=== PATIENT | female | born 1945 | race Caucasian/White ===

== ENCOUNTER 2016-12-20 08:53 | Emergency (ER) | payer MEDICARE, OTHER ==
[~2016-12-20] VITALS: Ht 172.7 cm; Wt 70.3 kg
[~2016-12-20 08:53] MED LIST: ACET325T53 PO; ASPI81TA2 PO; CALC-619 PO; DASA70TA PO; DILT240C94 PO; DOCU250C71 PO; FURO-149 PO; GABA600T PO; HYDR-1189 PO; HYDR-4039 PO; IMAT100T2 PO; INSNPH7030 SQ; INSU100V SQ; LOSA100T11 PO; PRAV20TA59 PO; RANI150T8 PO; TRAM50TA2 PO; TRAZ-123 PO; metropolol PO
--- NOTE | 2016-12-20 08:55 | NUR ---
Arrived via S ambulance S/P fall last night. Patient remains on EMS gurney. No beds available.
[2016-12-20 08:56] VITALS: BP 156/101; PULSE 94; RESP 16; TEMP 97.4; O2SAT 98
--- NOTE | 2016-12-20 09:25 | NUR ---
Off unit for rad.
[2016-12-20] MEDS ORDERED: MENT113G4 TP (09:35)
[2016-12-20] MEDS ORDERED: ONDA4TAB22 PO (09:35)
[2016-12-20] MEDS ORDERED: VITA1TAB25 PO (09:35)
[2016-12-20] MEDS ORDERED: LIP80 PO (09:35)
[2016-12-20] MEDS ORDERED: ISO10 PO (09:35)
[2016-12-20] MEDS ORDERED: CHOL500037 PO (09:35)
[2016-12-20] MEDS ORDERED: SEN30 PO (09:35)
[2016-12-20] MEDS ORDERED: CLOP75TA2 PO (09:35)
--- NOTE | 2016-12-20 09:43 | NUR ---
Patient returned from Rad. Patient to ER bed 7 to gown for evaluation. Side rails up. Report given to Vilma CLEMENS.
[2016-12-20 10:03] LABS: BASOPHILS % (AUTO) 0.2 % (0.0-2.0); EOSINOPHILS % (AUTO) 0.4 % (0.0-4.0); HEMATOCRIT 32.4 % (36-48); HEMOGLOBIN 11.1 g/dL (12.0-16.0); LYMPHOCYTES # (AUTO) 1.2 K/uL (1.0-5.5); LYMPHOCYTES % (AUTO) 17.9 % (20.5-51.5); MEAN CORPUSCULAR HEMOGLOBIN 35 pg (27-31); MEAN CORPUSCULAR HGB CONC 34 % (32-36); MEAN CORPUSCULAR VOLUME 100 fL (79.0-98.0); MONOCYTES # (AUTO) 0.6 K/uL (0.0-1.0); MONOCYTES % (AUTO) 8.3 % (1.7-9.3); NEUTROPHILS % (AUTO) 73.2 % (40.0-70.0); PLATELET COUNT (AUTO) 116 K/uL (130-430); RED BLOOD CELL COUNT(AUTO) 3.23 MIL/uL (4.2-6.2); RED CELL DISTRIBUTION WIDTH 12.9 % (9.0-15.0); WHITE BLOOD COUNT (AUTO) 6.8 K/uL (4.8-10.8)
--- NOTE | 2016-12-20 10:03 | NUR ---
Patient in stable condition, no distress noted.
[2016-12-20 10:10] LABS: ALBUMIN 3.9 g/dL (3.4-4.8); CREATININE 3.23 mg/dL (0.55-1.30); POTASSIUM 3.8 mmol/L (3.5-5.1); TOTAL BILIRUBIN 1.4 mg/dL (0.0-1.0)
[2016-12-20 10:15] LABS: CALCIUM 8.9 mg/dL (8.4-11.0)
[2016-12-20 10:33] LABS: BILIRUBIN,URINE NEGATIVE (NEGATIVE); BLOOD, URINE 2+ (NEGATIVE); CLARITY/URINE CLEAR (CLEAR); COLOR,URINE YELLOW (YELLOW); GLUCOSE,URINE NEGATIVE (NEGATIVE); KETONES,URINE NEGATIVE (NEGATIVE); LEUKOCYTE ESTERASE ,URINE TRACE (NEGATIVE); NITRITE, URINE NEGATIVE (NEGATIVE); PROTEIN URINE 3+ (NEGATIVE); UROBILINOGEN,URINE 0.2 (0.2-1.0)
[2016-12-20 10:35] LABS: CKMB RELATIVE INDEX 0.2 (0.0-2.9); CREATINE KINASE MB 0.4 ng/mL (0-3.6)
[2016-12-20 10:39] LABS: BACTERIA,URINE MANY /HPF (None Seen); MUCUS,URINE None Seen /LPF (None Seen)
--- NOTE | 2016-12-20 11:27 | NUR ---
Patient in stable condition, resting quietly in bed, no distress noted.
[2016-12-20] MEDS ORDERED: ACETAMINOPHEN 500 MG TABLET PO ONE (11:45)
--- NOTE | 2016-12-20 12:00 | NUR ---
PT. READY TO BE DISCHARGED, [facility] WAS CALLED TO GIVE REPORT AND ARRANGE TRANSPORTATION, TRANSPORTATION NOT AVAILABLE DURING WEEKENDS AT [facility], PT. IN BED WAITING TO BE TRANSPORTED BACK TO [facility]
--- NOTE | 2016-12-20 12:15 | NUR ---
PT. FAMILY APPROACHED, UNABLE TO BRAID MAKER THE PT. AT THIS TIME
[2016-12-20 13:30] VITALS: BP 141/89; PULSE 72; RESP 18; TEMP 98.1; O2SAT 98
--- NOTE | 2016-12-20 13:30 | NUR ---
Patient given written and verbal discharge instructions and verbalizes understanding. ER MD DR. SANTOS discussed with patient the results and treatment provided. Patient in stable condition. ID arm band removed. IV catheter removed intact and dressing applied, no active bleeding. NO Rx given. Patient educated on pain management and to follow up with PMD. Pain Scale 0/10 Opportunity for questions provided and answered.
--- NOTE | 2016-12-23 07:44 | NUR ---
Final culture reviewed with Dr. Will. New Rx for Macrobid 50mg PO Bid faxed to [facility] will ensure that Rx is filled and patient is able to take it.
== END 2016-12-20 13:30 | disposition home or self-care (01) ==
LOC: SED 08:53
DX: S63.501A Unspecified sprain of right wrist, initial encounter (principal); S83.91XA Sprain of unspecified site of right knee, initial encounter; S70.01XA Contusion of right hip, initial encounter; S16.1XXA Strain of muscle, fascia and tendon at neck level, initial encounter; N39.0 Urinary tract infection, site not specified; N28.9 Disorder of kidney and ureter, unspecified; I12.0 Hypertensive chronic kidney disease with stage 5 chronic kidney disease or end stage renal disease; R51 Headache; C95.90 Leukemia, unspecified not having achieved remission; E11.9 Type 2 diabetes mellitus without complications; E78.00 Pure hypercholesterolemia, unspecified; N18.6 End stage renal disease; Z99.2 Dependence on renal dialysis; Z88.1 Allergy status to other antibiotic agents; Z86.73 Personal history of transient ischemic attack (TIA), and cerebral infarction without residual deficits; Z90.49 Acquired absence of other specified parts of digestive tract; Z90.710 Acquired absence of both cervix and uterus; W01.0XXA Fall on same level from slipping, tripping and stumbling without subsequent striking against object, initial encounter; Y99.8 Other external cause status; Y93.01 Activity, walking, marching and hiking; Y92.89 Other specified places as the place of occurrence of the external cause
CPT/HCPCS: 36415; 70450-TC; 72125-TC; 72170-TC; 73560-TC; 80053; 81000-TC; 82550-TC; 82553-TC; 85025; 85610-TC; 85730-TC; 87086; 87186-TC; 99285

== ENCOUNTER 2017-04-20 13:29 | Emergency (ER) | payer MEDICARE, OTHER ==
[~2017-04-20] VITALS: Ht 170.2 cm; Wt 74.8 kg
[~2017-04-20 13:29] MED LIST changes: -ACET325T53 PO; -ASPI81TA2 PO; -CALC-619 PO; +CHOL500037 PO; +CLOP75TA2 PO; -DILT240C94 PO; -DOCU250C71 PO; -FURO-149 PO; -GABA600T PO; -HYDR-1189 PO; -HYDR-4039 PO; -IMAT100T2 PO; -INSNPH7030 SQ; -INSU100V SQ; +ISO10 PO; +LIP80 PO; -LOSA100T11 PO; +MENT113G4 TP; +ONDA4TAB22 PO; -PRAV20TA59 PO; -RANI150T8 PO; +SEN30 PO; +VITA1TAB25 PO
[2017-04-20 13:31] VITALS: BP_SYST 118
[2017-04-20] MEDS ORDERED: ACETAMINOPHEN 325 MG TABLET PO ONE (13:45)
[2017-04-20] MEDS ORDERED: ONDANSETRON 4 MG ODT TAB PO ONE (13:45)
[2017-04-20 16:53] VITALS: BP_SYST 120
== END 2017-04-20 16:53 | disposition home or self-care (01) ==
LOC: SED 13:29
DX: S13.4XXA Sprain of ligaments of cervical spine, initial encounter (principal); M25.512 Pain in left shoulder; M25.522 Pain in left elbow; R51 Headache; I12.9 Hypertensive chronic kidney disease with stage 1 through stage 4 chronic kidney disease, or unspecified chronic kidney disease; E11.22 Type 2 diabetes mellitus with diabetic chronic kidney disease; N18.9 Chronic kidney disease, unspecified; E78.00 Pure hypercholesterolemia, unspecified; Z99.2 Dependence on renal dialysis; Z86.73 Personal history of transient ischemic attack (TIA), and cerebral infarction without residual deficits; Z88.1 Allergy status to other antibiotic agents; Z79.899 Other long term (current) drug therapy; V59.60XA Unspecified occupant of pick-up truck or van injured in collision with unspecified motor vehicles in traffic accident, initial encounter; Y93.89 Activity, other specified; Y92.89 Other specified places as the place of occurrence of the external cause; Y99.8 Other external cause status
CPT/HCPCS: 29105; 70450; 72125; 72128; 73030; 73080; 99284; Q0162

== ENCOUNTER 2018-06-01 19:40 | Emergency (ER) | payer MEDICARE, OTHER ==
[~2018-06-01] VITALS: Ht 162.6 cm; Wt 61.2 kg
[2018-06-01 19:40] VITALS: BP_SYST 129
[~2018-06-01 19:40] MED LIST changes: -MENT113G4 TP; +METO25TA6 PO; -metropolol PO
[2018-06-01] MEDS ORDERED: NACL 0.9% 1,000 ML IV ONE (19:50)
[2018-06-01] MEDS ORDERED: ASPIRIN 81 MG TAB.CHEW PO ONE (20:15)
[2018-06-01] MEDS ORDERED: NITROGLYCERIN 0.4 MG TAB.SUBL SL ONE (20:15)
[2018-06-01 20:38] LABS: EOSINOPHILS # (AUTO) 0.1 K/uL (0.0-0.4); EOSINOPHILS % (AUTO) 1.9 % (0.0-4.0); HEMATOCRIT 30.8 % (36-48); HEMOGLOBIN 10.3 g/dL (12.0-16.0); LYMPHOCYTES # (AUTO) 1.5 K/uL (1.0-5.5); LYMPHOCYTES % (AUTO) 49.6 % (20.5-51.5); MEAN CORPUSCULAR HEMOGLOBIN 36 pg (27-31); MEAN CORPUSCULAR HGB CONC 34 % (32-36); MEAN CORPUSCULAR VOLUME 106 fL (79.0-98.0); MONOCYTES # (AUTO) 0.2 K/uL (0.0-1.0); MONOCYTES % (AUTO) 7.2 % (1.7-9.3); NEUTROPHILS # (AUTO) 1.2 K/uL (1.8-7.7); NEUTROPHILS % (AUTO) 40.3 % (40.0-70.0); PLATELET COUNT (AUTO) 139 K/uL (130-430)
[2018-06-01 20:47] LABS: ANION GAP 9 (5-15); CALCIUM 7.3 mg/dL (8.4-11.0); CHLORIDE 96 mmol/L (98-107); CREATININE 3.73 mg/dL (0.55-1.30); GLUCOSE 141 mg/dL (70-99); POTASSIUM 3.3 mmol/L (3.5-5.1); SODIUM SERUM 133 mmol/L (136-145); UREA NITROGEN, BLOOD 42 mg/dL (8-21)
[2018-06-01 20:51] LABS: ALANINE AMINOTRANSFERASE 35 U/L (12-78); ALBUMIN 3.1 g/dL (3.4-4.8); AMYLASE 107 U/L (0-100); ASPARTATE AMINOTRANSFERASE 37 U/L (10-37); LIPASE 399 U/L (73-393); TOTAL BILIRUBIN 0.8 mg/dL (0.0-1.0)
[2018-06-01 20:54] LABS: INR 1.1 (0.8-1.2)
[2018-06-01] MEDS ORDERED: ACETAMINOPHEN 650 MG/20.3 ML UDC PO ONE (22:00)
[2018-06-01 22:51] LABS: BILIRUBIN,URINE NEGATIVE (NEGATIVE); BLOOD, URINE 1+ (NEGATIVE); CLARITY/URINE HAZY (CLEAR); COLOR,URINE YELLOW (YELLOW); GLUCOSE,URINE NEGATIVE (NEGATIVE); KETONES,URINE NEGATIVE (NEGATIVE); LEUKOCYTE ESTERASE ,URINE 3+ (NEGATIVE); NITRITE, URINE NEGATIVE (NEGATIVE); PH,URINE 6.5 (5.0-8.0); PROTEIN URINE 1+ (NEGATIVE); UROBILINOGEN,URINE 0.2 (0.2-1.0)
[2018-06-01 22:59] LABS: BACTERIA,URINE MANY /HPF (None Seen); MUCUS,URINE 1+ /LPF (None Seen); WBC,URINE 80-100 /HPF (0-3)
[2018-06-01] MEDS ORDERED: cefTRIAXone 1 GM IVPB PREMIX 50 ML IV ONE (23:00)
[2018-06-02 02:45] VITALS: BP_SYST 152
== END 2018-06-02 02:45 | disposition short-term general hospital (02) ==
LOC: SED 19:40
DX: I12.9 Hypertensive chronic kidney disease with stage 1 through stage 4 chronic kidney disease, or unspecified chronic kidney disease (principal); E11.22 Type 2 diabetes mellitus with diabetic chronic kidney disease; N18.9 Chronic kidney disease, unspecified; R07.9 Chest pain, unspecified; D63.8 Anemia in other chronic diseases classified elsewhere; E87.1 Hypo-osmolality and hyponatremia; E87.6 Hypokalemia; N39.0 Urinary tract infection, site not specified; R79.89 Other specified abnormal findings of blood chemistry; E78.00 Pure hypercholesterolemia, unspecified; Z85.6 Personal history of leukemia; Z88.1 Allergy status to other antibiotic agents; Z99.2 Dependence on renal dialysis; Z79.899 Other long term (current) drug therapy
CPT/HCPCS: 36415; 71045; 80053; 81000; 82150; 82550; 83605; 83690; 84484; 85025; 85610; 85730; 87040; 87086; 93005; 96361; 96365; 99285; J0696; J7030

== ENCOUNTER 2018-10-11 19:28 | Emergency (ER) | payer MEDICARE, OTHER ==
[~2018-10-11] VITALS: Ht 172.7 cm; Wt 74.8 kg
[2018-10-11 19:35] VITALS: BP_SYST 183
[2018-10-11] MEDS ORDERED: ACETAMINOPHEN 500 MG TABLET PO ONE (20:30)
[2018-10-11 20:46] LABS: BASOPHILS % (AUTO) 0.2 % (0.0-2.0); EOSINOPHILS # (AUTO) 0.1 K/uL (0.0-0.4); EOSINOPHILS % (AUTO) 2.5 % (0.0-4.0); HEMATOCRIT 28.3 % (36-48); HEMOGLOBIN 9.5 g/dL (12.0-16.0); MEAN CORPUSCULAR HEMOGLOBIN 34 pg (27-31); MEAN CORPUSCULAR HGB CONC 34 % (32-36); MEAN CORPUSCULAR VOLUME 102 fL (79.0-98.0); MONOCYTES # (AUTO) 0.3 K/uL (0.0-1.0); MONOCYTES % (AUTO) 9.3 % (1.7-9.3); NEUTROPHILS # (AUTO) 2.2 K/uL (1.8-7.7); PLATELET COUNT (AUTO) 117 K/uL (130-430); RED BLOOD CELL COUNT(AUTO) 2.77 MIL/uL (4.2-6.2); RED CELL DISTRIBUTION WIDTH 12.6 % (9.0-15.0); WHITE BLOOD COUNT (AUTO) 3.6 K/uL (4.8-10.8)
[2018-10-11 21:00] LABS: ANION GAP 8 (5-15); CALCIUM 7.6 mg/dL (8.4-11.0); CHLORIDE 101 mmol/L (98-107); CREATININE 4.37 mg/dL (0.55-1.30); GLUCOSE 122 mg/dL (70-99); POTASSIUM 4.6 mmol/L (3.5-5.1); SODIUM SERUM 133 mmol/L (136-145); UREA NITROGEN, BLOOD 39 mg/dL (8-21)
[2018-10-11 21:07] LABS: ALANINE AMINOTRANSFERASE 38 U/L (12-78); ASPARTATE AMINOTRANSFERASE 46 U/L (10-37); TOTAL BILIRUBIN 0.8 mg/dL (0.0-1.0)
[2018-10-11 21:57] LABS: BILIRUBIN,URINE NEGATIVE (NEGATIVE); CLARITY/URINE CLEAR (CLEAR); COLOR,URINE YELLOW (YELLOW); GLUCOSE,URINE NEGATIVE (NEGATIVE); KETONES,URINE NEGATIVE (NEGATIVE); LEUKOCYTE ESTERASE ,URINE 3+ (NEGATIVE); NITRITE, URINE NEGATIVE (NEGATIVE); PROTEIN URINE 2+ (NEGATIVE); UROBILINOGEN,URINE 0.2 (0.2-1.0)
[2018-10-11 22:04] LABS: BLOOD, URINE TRACE (NEGATIVE)
[2018-10-11] MEDS ORDERED: NITROFURANTOIN MONOHYD/M-CRYST 100 MG CAPSULE PO ONE (22:15)
[2018-10-11 22:17] LABS: BACTERIA,URINE MANY /HPF (None Seen); WBC,URINE 20-50 /HPF (0-3)
[2018-10-11 22:18] LABS: YEAST,URINE None Seen /HPF (None Seen)
[2018-10-11 23:40] VITALS: BP_SYST 149
== END 2018-10-11 23:40 | disposition home or self-care (01) ==
LOC: SED 19:28
DX: S00.03XA Contusion of scalp, initial encounter (principal); N39.0 Urinary tract infection, site not specified; D61.818 Other pancytopenia; E78.00 Pure hypercholesterolemia, unspecified; E11.29 Type 2 diabetes mellitus with other diabetic kidney complication; N28.9 Disorder of kidney and ureter, unspecified; I10 Essential (primary) hypertension; Z86.73 Personal history of transient ischemic attack (TIA), and cerebral infarction without residual deficits; Z85.6 Personal history of leukemia; Z90.49 Acquired absence of other specified parts of digestive tract; Z90.710 Acquired absence of both cervix and uterus; Z99.2 Dependence on renal dialysis; Z88.1 Allergy status to other antibiotic agents; Z79.899 Other long term (current) drug therapy; W18.39XA Other fall on same level, initial encounter; Y93.89 Activity, other specified; Y92.89 Other specified places as the place of occurrence of the external cause; Y99.8 Other external cause status
CPT/HCPCS: 36415; 70450-TC; 71045; 80053; 81000-TC; 85025; 87086; 99284

== ENCOUNTER 2018-11-11 20:49 | Emergency (ER) | payer MEDICARE, OTHER ==
[~2018-11-11] VITALS: Ht 172.7 cm; Wt 59.0 kg
[2018-11-11 20:49] VITALS: BP_SYST 126
[2018-11-11 21:23] LABS: BASOPHILS % (AUTO) 0.7 % (0.0-2.0); EOSINOPHILS # (AUTO) 0.1 K/uL (0.0-0.4); EOSINOPHILS % (AUTO) 2.9 % (0.0-4.0); HEMATOCRIT 28.8 % (36-48); HEMOGLOBIN 9.7 g/dL (12.0-16.0); LYMPHOCYTES # (AUTO) 1.3 K/uL (1.0-5.5); LYMPHOCYTES % (AUTO) 30.9 % (20.5-51.5); MEAN CORPUSCULAR HEMOGLOBIN 34 pg (27-31); MEAN CORPUSCULAR HGB CONC 34 % (32-36); MEAN CORPUSCULAR VOLUME 100 fL (79.0-98.0); MONOCYTES # (AUTO) 0.4 K/uL (0.0-1.0); MONOCYTES % (AUTO) 9.2 % (1.7-9.3); NEUTROPHILS # (AUTO) 2.3 K/uL (1.8-7.7); NEUTROPHILS % (AUTO) 56.3 % (40.0-70.0); PLATELET COUNT (AUTO) 130 K/uL (130-430); RED BLOOD CELL COUNT(AUTO) 2.87 MIL/uL (4.2-6.2); RED CELL DISTRIBUTION WIDTH 13.2 % (9.0-15.0); WHITE BLOOD COUNT (AUTO) 4.1 K/uL (4.8-10.8)
[2018-11-11 21:35] LABS: ANION GAP 8 (5-15); CALCIUM 8.4 mg/dL (8.4-11.0); CHLORIDE 99 mmol/L (98-107); CREATININE 2.95 mg/dL (0.55-1.30); GLUCOSE 100 mg/dL (70-99); POTASSIUM 3.4 mmol/L (3.5-5.1); SODIUM SERUM 137 mmol/L (136-145); UREA NITROGEN, BLOOD 14 mg/dL (8-21)
[2018-11-11 21:40] LABS: ALANINE AMINOTRANSFERASE 18 U/L (12-78); ALBUMIN 2.9 g/dL (3.4-4.8); ASPARTATE AMINOTRANSFERASE 33 U/L (10-37); TOTAL BILIRUBIN 0.8 mg/dL (0.0-1.0)
[2018-11-12] MEDS ORDERED: METOPROLOL TARTRATE 5 MG/5 ML VIAL IVP ONE (03:45)
[2018-11-12 03:48] VITALS: BP_SYST 187
== END 2018-11-12 03:48 | disposition home or self-care (01) ==
LOC: SED 20:49
DX: M25.511 Pain in right shoulder (principal); M25.551 Pain in right hip; E78.00 Pure hypercholesterolemia, unspecified; E11.29 Type 2 diabetes mellitus with other diabetic kidney complication; N28.9 Disorder of kidney and ureter, unspecified; I10 Essential (primary) hypertension; Z86.73 Personal history of transient ischemic attack (TIA), and cerebral infarction without residual deficits; Z85.41 Personal history of malignant neoplasm of cervix uteri; Z85.6 Personal history of leukemia; Z90.710 Acquired absence of both cervix and uterus; Z99.2 Dependence on renal dialysis; Z88.1 Allergy status to other antibiotic agents; Z79.899 Other long term (current) drug therapy; W18.09XA Striking against other object with subsequent fall, initial encounter; Y93.89 Activity, other specified; Y92.89 Other specified places as the place of occurrence of the external cause; Y99.8 Other external cause status
CPT/HCPCS: 36415; 71045; 73030; 73502; 73560; 80053; 82550; 83880; 84484; 85025; 93005; 96374; 99284; J3490

== ENCOUNTER 2018-12-31 20:40 | Emergency (ER) | payer MEDICARE, OTHER ==
[~2018-12-31] VITALS: Ht 170.2 cm; Wt 65.8 kg
[~2018-12-31 20:40] MED LIST changes: +ACET-73 PO; +CLOP75TA32 PO; +DIVA250T PO; +FAMO1TAB29 PO; +FOLI400T4 PO; +ISOS5TAB3 PO; +LIP40 PO; +ONDA4TAB5 PO; -TRAZ-123 PO; +TRAZ-218 PO
[2018-12-31 20:47] VITALS: BP_SYST 159
[2018-12-31 21:57] LABS: WHITE BLOOD COUNT (AUTO) 3.7 K/uL (4.8-10.8)
[2018-12-31 21:58] LABS: BASOPHILS % (AUTO) 0.3 % (0.0-2.0); EOSINOPHILS % (AUTO) 0.8 % (0.0-4.0); HEMATOCRIT 27.5 % (36-48); HEMOGLOBIN 9.5 g/dL (12.0-16.0); LYMPHOCYTES % (AUTO) 23.1 % (20.5-51.5); MEAN CORPUSCULAR HEMOGLOBIN 35 pg (27-31); MEAN CORPUSCULAR HGB CONC 34 % (32-36); MEAN CORPUSCULAR VOLUME 101 fL (79.0-98.0); MONOCYTES % (AUTO) 9.7 % (1.7-9.3); NEUTROPHILS # (AUTO) 2.4 K/uL (1.8-7.7); NEUTROPHILS % (AUTO) 66.1 % (40.0-70.0); PLATELET COUNT (AUTO) 110 K/uL (130-430); RED BLOOD CELL COUNT(AUTO) 2.72 MIL/uL (4.2-6.2); RED CELL DISTRIBUTION WIDTH 14.7 % (9.0-15.0)
[2018-12-31 21:59] LABS: BASOPHILS # (AUTO) 0.3 K/uL (0.0-0.2); LYMPHOCYTES # (AUTO) 0.8 K/uL (1.0-5.5); MONOCYTES # (AUTO) 0.4 K/uL (0.0-1.0)
[2018-12-31 22:13] LABS: ANION GAP 6 (5-15); CALCIUM 7.7 mg/dL (8.4-11.0); CHLORIDE 102 mmol/L (98-107); CREATININE 1.83 mg/dL (0.55-1.30); GLUCOSE 124 mg/dL (70-99); SODIUM SERUM 140 mmol/L (136-145); UREA NITROGEN, BLOOD 16 mg/dL (8-21)
[2018-12-31 22:45] LABS: BILIRUBIN,URINE NEGATIVE (NEGATIVE); BLOOD, URINE 1+ (NEGATIVE); CLARITY/URINE SL CLOUDY (CLEAR); COLOR,URINE YELLOW (YELLOW); GLUCOSE,URINE NEGATIVE (NEGATIVE); KETONES,URINE NEGATIVE (NEGATIVE); LEUKOCYTE ESTERASE ,URINE 3+ (NEGATIVE); NITRITE, URINE NEGATIVE (NEGATIVE); PH,URINE 8.5 (5.0-8.0); PROTEIN URINE 2+ (NEGATIVE); UROBILINOGEN,URINE 0.2 (0.2-1.0)
[2018-12-31 22:57] LABS: BACTERIA,URINE MANY /HPF (None Seen); MUCUS,URINE None Seen /LPF (None Seen); RBC,URINE NONE SEEN /HPF (0-3); WBC,URINE >100 /HPF (0-3)
[2019-01-01] MEDS ORDERED: cefTRIAXone 1 GM IVPB PREMIX 50 ML IV ONE (06:00)
[2019-01-01 08:34] VITALS: BP_SYST 146
== END 2019-01-01 08:34 | disposition home or self-care (01) ==
LOC: MERGE 20:40 → SED 20:40
DX: S40.011A Contusion of right shoulder, initial encounter (principal); S09.90XA Unspecified injury of head, initial encounter; N39.0 Urinary tract infection, site not specified; E78.00 Pure hypercholesterolemia, unspecified; F03.90 Unspecified dementia, unspecified severity, without behavioral disturbance, psychotic disturbance, mood disturbance, and anxiety; Z86.79 Personal history of other diseases of the circulatory system; Z99.2 Dependence on renal dialysis; Z88.1 Allergy status to other antibiotic agents; Z79.899 Other long term (current) drug therapy; W19.XXXA Unspecified fall, initial encounter; Y93.89 Activity, other specified; Y92.89 Other specified places as the place of occurrence of the external cause; Y99.8 Other external cause status
CPT/HCPCS: 36415; 70450; 73030; 80048; 81000; 85025; 87040; 87086; 87186; 96365; 99284; J0696

== ENCOUNTER 2019-02-27 17:13 | Emergency (ER) | payer MEDICARE, OTHER ==
[~2019-02-27] VITALS: Ht 160 cm; Wt 63.5 kg
[2019-02-27] MEDS ORDERED: NACL 0.9% 1,000 ML IV ONE (17:15)
[2019-02-27] MEDS ORDERED: ASPIRIN 81 MG TAB.CHEW PO ONE (17:15)
[2019-02-27] MEDS ORDERED: CLOPIDOGREL BISULFATE 75 MG TABLET PO ONE (17:15)
[2019-02-27] MEDS ORDERED: NITROGLYCERIN 0.4 MG TAB.SUBL SL ONE (17:15)
--- NOTE | 2019-02-27 17:16 | NUR ---
Arrived via BLS with compliant of chest pain and left shoulder pain which she describes as starting today. Patient had a fall 2 days ago. Placed in room 1. Placed on cardiac technologist, blood pressure machine and pulse oximeter. To gown for exam. Side rails up. Report given to Merry CLEMENS.
[2019-02-27 17:18] VITALS: BP_SYST 117
--- NOTE | 2019-02-27 17:30 | NUR ---
ER at bedside examining patient.
--- NOTE | 2019-02-27 17:30 | NUR ---
Patient AOx4 from [facility]. Patient had an unwitnessed fall 2 days ago that she was unware of. patint has left shoulder and left chest pain that is dull and nonradiating. patient has pain with movement and palpation of areas. patient has full ROM. Patient denies chest pressure, limb numbness, N/V/D, diaphoresis. no other complaint or injury at this time.
[2019-02-27 17:45] LABS: BASOPHILS % (AUTO) 0.7 % (0.0-2.0); EOSINOPHILS # (AUTO) 0.1 K/uL (0.0-0.4); EOSINOPHILS % (AUTO) 3.1 % (0.0-4.0); HEMATOCRIT 32.6 % (36-48); LYMPHOCYTES # (AUTO) 1.6 K/uL (1.0-5.5); LYMPHOCYTES % (AUTO) 40.4 % (20.5-51.5); MEAN CORPUSCULAR HEMOGLOBIN 35 pg (27-31); MEAN CORPUSCULAR HGB CONC 34 % (32-36); MEAN CORPUSCULAR VOLUME 105 fL (79.0-98.0); MONOCYTES # (AUTO) 0.3 K/uL (0.0-1.0); MONOCYTES % (AUTO) 6.8 % (1.7-9.3); NEUTROPHILS # (AUTO) 1.9 K/uL (1.8-7.7); PLATELET COUNT (AUTO) 143 K/uL (130-430); RED BLOOD CELL COUNT(AUTO) 3.12 MIL/uL (4.2-6.2); RED CELL DISTRIBUTION WIDTH 13.8 % (9.0-15.0); WHITE BLOOD COUNT (AUTO) 3.9 K/uL (4.8-10.8)
--- NOTE | 2019-02-27 17:45 | NUR ---
# 20 gauge angiocath placed to RAC. Use of asceptic technique. Opsite placed over site. Blood return noted. Blood for lab drawn from site. Flushed with 10 cc of normal saline. No evidence of infiltration noted. Patient tolerated well.
[2019-02-27 17:54] LABS: ANION GAP 6 (5-15); CALCIUM 7.8 mg/dL (8.4-11.0); CHLORIDE 97 mmol/L (98-107); CREATININE 3.95 mg/dL (0.55-1.30); GLUCOSE 124 mg/dL (70-99); POTASSIUM 3.8 mmol/L (3.5-5.1); SODIUM SERUM 135 mmol/L (136-145); UREA NITROGEN, BLOOD 43 mg/dL (8-21)
[2019-02-27 17:57] LABS: PROTHROMBIN TIME 10.7 SECS (9.5-12.5)
[2019-02-27 17:58] LABS: ALANINE AMINOTRANSFERASE 45 U/L (12-78); ALBUMIN 2.5 g/dL (3.4-4.8); AMYLASE 142 U/L (0-100); ASPARTATE AMINOTRANSFERASE 55 U/L (10-37); LIPASE 735 U/L (73-393); TOTAL BILIRUBIN 0.7 mg/dL (0.0-1.0)
--- NOTE | 2019-02-27 18:00 | NUR ---
patient is able to urinate on her own. however, she would like to wait until the fluids are complete to help with urination.
--- NOTE | 2019-02-27 19:20 | NUR ---
Lab at bedside obtaining second troponin level. Pt tolerated well.
--- NOTE | 2019-02-27 20:02 | NUR ---
ER Dr. Blackburn at bedside explaining results to patient.
[2019-02-27] MEDS ORDERED: CLOP75TA32 PO (20:14)
[2019-02-27] MEDS ORDERED: DASA70TA PO (20:14)
[2019-02-27] MEDS ORDERED: ISO10 PO (20:14)
[2019-02-27] MEDS ORDERED: FOLI400T4 PO (20:14)
[2019-02-27] MEDS ORDERED: ONDA4TAB5 PO (20:14)
[2019-02-27] MEDS ORDERED: ERGO500020 PO (20:14)
[2019-02-27] MEDS ORDERED: SEN30 PO (20:14)
[2019-02-27] MEDS ORDERED: ACET-73 PO (20:14)
[2019-02-27] MEDS ORDERED: HYDR-3917 PO (20:14)
[2019-02-27] MEDS ORDERED: FAMO1TAB29 PO (20:14)
[2019-02-27] MEDS ORDERED: METO25TA6 PO (20:14)
[2019-02-27] MEDS ORDERED: TRAZ-218 PO (20:14)
[2019-02-27] MEDS ORDERED: LIP40 PO (20:14)
[2019-02-27] MEDS ORDERED: DIVA250T PO (20:14)
[2019-02-27 21:28] VITALS: BP_SYST 142
--- NOTE | 2019-02-27 21:31 | NUR ---
Patient to be transferred to [facility]. Is being transferred due to higher level of care. Receiving facility has accepting physician and available space. ER physician has signed transfer form. Patient or responsible constitution party has agreed to transfer and signed form. Patient belongings inventoried and will be sent with patient. Copy of nursing notes, lab reports, EKG, Physicians Orders and X-rays to be sent with patient. Report called to Amp at receiving facility. Receiving physician is Dr. Chambers. [facility] has been called for transfer. Pt VSS. IV intact, no infiltration or edema.
== END 2019-02-27 21:28 | disposition short-term general hospital (02) ==
LOC: SED 17:13
DX: K85.90 Acute pancreatitis without necrosis or infection, unspecified (principal); R07.89 Other chest pain; M25.512 Pain in left shoulder; I12.0 Hypertensive chronic kidney disease with stage 5 chronic kidney disease or end stage renal disease; E11.22 Type 2 diabetes mellitus with diabetic chronic kidney disease; N18.6 End stage renal disease; Z99.2 Dependence on renal dialysis; E78.00 Pure hypercholesterolemia, unspecified; Z86.73 Personal history of transient ischemic attack (TIA), and cerebral infarction without residual deficits; Z88.1 Allergy status to other antibiotic agents; Z79.899 Other long term (current) drug therapy; W19.XXXA Unspecified fall, initial encounter; Y93.89 Activity, other specified; Y92.89 Other specified places as the place of occurrence of the external cause; Y99.8 Other external cause status
CPT/HCPCS: 36415; 71045; 73030; 80053; 82550; 82150; 83605; 83690; 83880; 84484; 85025; 85610; 85730; 87040; 93005; 99285; J7030

== ENCOUNTER 2019-06-25 13:20 | Emergency (ER) | payer MEDICARE, OTHER ==
[~2019-06-25] VITALS: Ht 165.1 cm; Wt 63.5 kg
[~2019-06-25 13:20] MED LIST changes: -CHOL500037 PO; -CLOP75TA2 PO; +ERGO500020 PO; +HYDR-3917 PO; -ISOS5TAB3 PO; -LIP80 PO; -ONDA4TAB22 PO; -TRAM50TA2 PO; -VITA1TAB25 PO
[2019-06-25 13:27] VITALS: BP_SYST 168
--- NOTE | 2019-06-25 13:27 | NUR ---
Placed in room 6 . Placed on second miller, blood pressure machine and pulse oximeter. To gown for exam. Side rails up. Report given to Sabas RN.
[2019-06-25] MEDS ORDERED: CLOPIDOGREL BISULFATE 75 MG TABLET PO ONE (13:30)
[2019-06-25] MEDS ORDERED: NITROGLYCERIN 0.4 MG TAB.SUBL SL ONE ×2 (13:30→14:15)
[2019-06-25] MEDS ORDERED: ASPIRIN 81 MG TAB.CHEW PO ONE (13:30)
[2019-06-25] MEDS ORDERED: NACL 0.9% 1,000 ML IV ONE (13:30)
--- NOTE | 2019-06-25 13:30 | NUR ---
Patient arrived via BLS ambulance, AAOx2, and non ambulatory. Patient c/c of 8/10 left shoulder and chest pain, mild headache. Patient states onset was earlier in the afternoon. Patient states pain is worse with deep inhalation in, and with left shoulder movement. Patient has history of ESRD with hemodialysis, last dialysis was yesterday. No recent trauma or falls noted. Patient denies shortness of breath, nausea, vomiting, diarrhea. Will continue to follow up and monitor.
--- NOTE | 2019-06-25 13:32 | NUR ---
ER at bedside examining patient.
[2019-06-25] MEDS ORDERED: ACETAMINOPHEN 500 MG TABLET PO ONE (14:00)
[2019-06-25 14:01] LABS: BASOPHILS % (AUTO) 0.8 % (0.0-2.0); EOSINOPHILS # (AUTO) 0.1 K/uL (0.0-0.4); EOSINOPHILS % (AUTO) 2.1 % (0.0-4.0); HEMATOCRIT 31.4 % (36-48); HEMOGLOBIN 10.8 g/dL (12.0-16.0); LYMPHOCYTES # (AUTO) 1.1 K/uL (1.0-5.5); LYMPHOCYTES % (AUTO) 37.7 % (20.5-51.5); MEAN CORPUSCULAR HEMOGLOBIN 37 pg (27-31); MEAN CORPUSCULAR HGB CONC 35 % (32-36); MEAN CORPUSCULAR VOLUME 106 fL (79.0-98.0); MONOCYTES # (AUTO) 0.3 K/uL (0.0-1.0); MONOCYTES % (AUTO) 8.8 % (1.7-9.3); NEUTROPHILS # (AUTO) 1.5 K/uL (1.8-7.7); NEUTROPHILS % (AUTO) 50.6 % (40.0-70.0); PLATELET COUNT (AUTO) 105 K/uL (130-430); RED BLOOD CELL COUNT(AUTO) 2.96 MIL/uL (4.2-6.2); RED CELL DISTRIBUTION WIDTH 13.7 % (9.0-15.0)
[2019-06-25 14:22] LABS: ANION GAP 11 (5-15); CALCIUM 7.8 mg/dL (8.4-11.0); CHLORIDE 101 mmol/L (98-107); CREATININE 2.75 mg/dL (0.55-1.30); GLUCOSE 105 mg/dL (70-99); POTASSIUM 4.3 mmol/L (3.5-5.1); SODIUM SERUM 141 mmol/L (136-145); UREA NITROGEN, BLOOD 36 mg/dL (8-21)
[2019-06-25 14:25] LABS: INR 1.1 (0.8-1.2); PROTHROMBIN TIME 11.6 SECS (9.5-12.5)
[2019-06-25 14:28] LABS: ALANINE AMINOTRANSFERASE 68 U/L (12-78); AMYLASE 155 U/L (0-100); ASPARTATE AMINOTRANSFERASE 72 U/L (10-37); LIPASE 706 U/L (73-393); TOTAL BILIRUBIN 0.6 mg/dL (0.0-1.0)
--- NOTE | 2019-06-25 15:36 | NUR ---
Dr. Pascual, [place] [facility] doc, paged back to speak to Dr. Merchant regarding pt status.
--- NOTE | 2019-06-25 16:27 | NUR ---
Pt A&Ox3, VSS, respirations even and unlabored.
--- NOTE | 2019-06-25 16:32 | NUR ---
PT REQUESTED FOOD, MD GARCIA NOTIFIED. TRAY ORDERED.
--- NOTE | 2019-06-25 18:17 | NUR ---
pt to be transferred to [facility] to ED accepting Dr. Pepe Mas
[2019-06-25 18:56] VITALS: BP_SYST 143
--- NOTE | 2019-06-25 18:59 | NUR ---
Patient to be transferred to [facility]. Is being transferred due to higher level of care. Receiving facility has accepting physician and available space. ER physician has signed transfer form. Patient or responsible constitution party has agreed to transfer and signed form. Patient belongings inventoried and will be sent with patient. Copy of nursing notes, lab reports, EKG, Physicians Orders sent with patient. Report called to at receiving facility. Receiving physician is . EMS has loaded patient without incident.
== END 2019-06-25 18:56 | disposition short-term general hospital (02) ==
LOC: SED 13:20
DX: I24.9 Acute ischemic heart disease, unspecified (principal); I12.0 Hypertensive chronic kidney disease with stage 5 chronic kidney disease or end stage renal disease; E11.22 Type 2 diabetes mellitus with diabetic chronic kidney disease; N18.6 End stage renal disease; R07.89 Other chest pain; E78.00 Pure hypercholesterolemia, unspecified; Z99.2 Dependence on renal dialysis; Z86.73 Personal history of transient ischemic attack (TIA), and cerebral infarction without residual deficits; Z88.1 Allergy status to other antibiotic agents
CPT/HCPCS: 36415; 71045; 80053; 82150-TC; 82550-TC; 83605; 83690-TC; 83880; 84484; 85025; 85610-TC; 85730-TC; 87040-TC; 93005; 99285

== ENCOUNTER 2019-07-04 11:19 | Emergency (ER) | payer MEDICARE, OTHER ==
[~2019-07-04] VITALS: Ht 152.4 cm; Wt 52.2 kg
--- NOTE | 2019-07-04 11:19 | NUR ---
ER Dr. LANDRY at bedside examining patient.
--- NOTE | 2019-07-04 11:19 | NUR ---
Placed in room 3. Placed on monitoring engineer, blood pressure machine and pulse oximeter. To gown for exam. Side rails up. Report given to Rubin CLEMENS.
--- NOTE | 2019-07-04 11:20 | NUR ---
PATIENT CAME IN COMPLAINING OF CHEST PAIN THAT STARTED TODAY. PATIENT COMPLAINING OF 7/10 PAIN RADIATING TO LEFT ARM. PATIENT WAS GIVEN ASPIRIN AND NITRO PRIOR TO ARRIVAL BY EMS. PATIENT NOW COMPLAINING OF HEADACHE. PATIENT IS COMPLAINING OF SOB BUT NO NAUSEA. PATIENT ALERT AND ORIENTED X2. PATIENT FROM [facility] AND WAS SUPPOSE TO HAVE DIALYSIS TODAY.
[2019-07-04 11:27] VITALS: BP_SYST 147
--- NOTE | 2019-07-04 11:35 | NUR ---
PATIENT GETTING LABS DRAWN IN BED.
[2019-07-04] MEDS ORDERED: VITA1CAP PO (11:44)
[2019-07-04] MEDS ORDERED: CALC200T28 PO (11:44)
[2019-07-04] MEDS ORDERED: METO25TA6 PO (11:44)
[2019-07-04] MEDS ORDERED: DASA70TA PO (11:44)
--- NOTE | 2019-07-04 11:44 | NUR ---
PATIENT GETTING X RAY IN BED.
[2019-07-04] MEDS ORDERED: ACETAMINOPHEN 325 MG TABLET PO ONE (11:45)
[2019-07-04 11:51] LABS: BASOPHILS % (AUTO) 0.7 % (0.0-2.0); EOSINOPHILS # (AUTO) 0.1 K/uL (0.0-0.4); EOSINOPHILS % (AUTO) 2.4 % (0.0-4.0); HEMATOCRIT 28.8 % (36-48); LYMPHOCYTES # (AUTO) 1.3 K/uL (1.0-5.5); LYMPHOCYTES % (AUTO) 32.4 % (20.5-51.5); MEAN CORPUSCULAR HEMOGLOBIN 36 pg (27-31); MEAN CORPUSCULAR HGB CONC 35 % (32-36); MEAN CORPUSCULAR VOLUME 105 fL (79.0-98.0); MONOCYTES # (AUTO) 0.3 K/uL (0.0-1.0); MONOCYTES % (AUTO) 6.9 % (1.7-9.3); NEUTROPHILS # (AUTO) 2.3 K/uL (1.8-7.7); NEUTROPHILS % (AUTO) 57.6 % (40.0-70.0); PLATELET COUNT (AUTO) 112 K/uL (130-430); RED BLOOD CELL COUNT(AUTO) 2.75 MIL/uL (4.2-6.2); RED CELL DISTRIBUTION WIDTH 13.1 % (9.0-15.0)
[2019-07-04 12:03] LABS: ANION GAP 10 (5-15); CALCIUM 7.6 mg/dL (8.4-11.0); CHLORIDE 102 mmol/L (98-107); CREATININE 4.63 mg/dL (0.55-1.30); GLUCOSE 82 mg/dL (70-99); POTASSIUM 4.5 mmol/L (3.5-5.1); SODIUM SERUM 138 mmol/L (136-145); UREA NITROGEN, BLOOD 70 mg/dL (8-21)
[2019-07-04 12:09] LABS: ALANINE AMINOTRANSFERASE 83 U/L (12-78); ALBUMIN 2.8 g/dL (3.4-4.8); ASPARTATE AMINOTRANSFERASE 66 U/L (10-37); TOTAL BILIRUBIN 0.6 mg/dL (0.0-1.0)
--- NOTE | 2019-07-04 13:23 | NUR ---
PATIENT RESTING IN BED. PATIENT ANXIOUS AND WANTS TO LEAVE. UPDATED PATIENT ON PLAN OF CARE. WILL CONTINUE TO MONITOR.
--- NOTE | 2019-07-04 15:52 | NUR ---
UPDATED PATIENT THAT SHE WILL BE TRANSFERED TO [facility]. ETA [id number]. PATIENT ANXIOUS TO LEAVE.
[2019-07-04 16:20] VITALS: BP_SYST 157
--- NOTE | 2019-07-04 16:20 | NUR ---
Patient to be transferred to [facility]. Is being transferred due to higher level of care. Receiving facility has accepting physician and available space. ER physician has signed transfer form. Patient or responsible republican has agreed to transfer and signed form. Patient belongings inventoried and will be sent with patient. Copy of nursing notes, lab reports, EKG, Physicians Orders and X-rays to be sent with patient. Report called to at receiving facility. Receiving physician is DR BHAT. Patient leaving now with EMS.
== END 2019-07-04 16:20 | disposition short-term general hospital (02) ==
LOC: SED 11:19
DX: R07.89 Other chest pain (principal); E78.00 Pure hypercholesterolemia, unspecified; I12.9 Hypertensive chronic kidney disease with stage 1 through stage 4 chronic kidney disease, or unspecified chronic kidney disease; E11.22 Type 2 diabetes mellitus with diabetic chronic kidney disease; N18.9 Chronic kidney disease, unspecified; Z99.2 Dependence on renal dialysis; Z86.73 Personal history of transient ischemic attack (TIA), and cerebral infarction without residual deficits; Z88.1 Allergy status to other antibiotic agents; Z79.899 Other long term (current) drug therapy
CPT/HCPCS: 36415; 71045; 80053; 84484; 85025; 93005; 99285

== ENCOUNTER 2019-07-09 15:57 | Emergency (ER) | payer MEDICARE, OTHER ==
[~2019-07-09] VITALS: Ht 152.4 cm; Wt 56.7 kg
[~2019-07-09 15:57] MED LIST changes: +CALC200T28 PO; -HYDR-3917 PO
[2019-07-09] MEDS ORDERED: NITROGLYCERIN 1 INCH (GM) OINT. TP ONE (16:30)
[2019-07-09] MEDS ORDERED: ASPIRIN 81 MG TAB.CHEW PO ONE (16:30)
[2019-07-09 17:08] LABS: BASOPHILS % (AUTO) 0.4 % (0.0-2.0); EOSINOPHILS # (AUTO) 0.1 K/uL (0.0-0.4); EOSINOPHILS % (AUTO) 1.6 % (0.0-4.0); HEMATOCRIT 30.6 % (36-48); HEMOGLOBIN 10.3 g/dL (12.0-16.0); LYMPHOCYTES # (AUTO) 2.5 K/uL (1.0-5.5); LYMPHOCYTES % (AUTO) 52.1 % (20.5-51.5); MEAN CORPUSCULAR HEMOGLOBIN 36 pg (27-31); MEAN CORPUSCULAR HGB CONC 34 % (32-36); MEAN CORPUSCULAR VOLUME 106 fL (79.0-98.0); MONOCYTES # (AUTO) 0.3 K/uL (0.0-1.0); MONOCYTES % (AUTO) 5.9 % (1.7-9.3); NEUTROPHILS # (AUTO) 1.9 K/uL (1.8-7.7); PLATELET COUNT (AUTO) 125 K/uL (130-430); RED BLOOD CELL COUNT(AUTO) 2.89 MIL/uL (4.2-6.2); RED CELL DISTRIBUTION WIDTH 13.5 % (9.0-15.0); WHITE BLOOD COUNT (AUTO) 4.8 K/uL (4.8-10.8)
[2019-07-09 17:21] LABS: ANION GAP 11 (5-15); CALCIUM 7.6 mg/dL (8.4-11.0); CHLORIDE 99 mmol/L (98-107); CREATININE 3.22 mg/dL (0.55-1.30); GLUCOSE 107 mg/dL (70-99); POTASSIUM 4.1 mmol/L (3.5-5.1); SODIUM SERUM 139 mmol/L (136-145); UREA NITROGEN, BLOOD 32 mg/dL (8-21)
[2019-07-09 17:27] LABS: ALANINE AMINOTRANSFERASE 83 U/L (12-78); ALBUMIN 2.9 g/dL (3.4-4.8); ASPARTATE AMINOTRANSFERASE 70 U/L (10-37); TOTAL BILIRUBIN 0.5 mg/dL (0.0-1.0)
[2019-07-09 17:32] LABS: INR 1.1 (0.8-1.2)
[2019-07-09 17:41] LABS: VALPROIC ACID 29 ug/mL (50-100)
[2019-07-09] MEDS ORDERED: DIVALPROEX SODIUM 250 MG TABLET(DEPAKOTE) PO ONE (18:15)
[2019-07-09 19:00] VITALS: BP_SYST 130
== END 2019-07-09 19:00 | disposition short-term general hospital (02) ==
LOC: SED 15:57
DX: R07.89 Other chest pain (principal); E78.00 Pure hypercholesterolemia, unspecified; I12.9 Hypertensive chronic kidney disease with stage 1 through stage 4 chronic kidney disease, or unspecified chronic kidney disease; E11.22 Type 2 diabetes mellitus with diabetic chronic kidney disease; N18.9 Chronic kidney disease, unspecified; Z86.73 Personal history of transient ischemic attack (TIA), and cerebral infarction without residual deficits; Z99.2 Dependence on renal dialysis; Z88.1 Allergy status to other antibiotic agents; Z79.899 Other long term (current) drug therapy
CPT/HCPCS: 36415; 71045; 74018; 80053; 80164-TC; 82962; 83880; 84484; 85025; 85610-TC; 93005; 99285